=== PATIENT | male | born 1985 | race African-American/Black ===

== ENCOUNTER 2016-11-10 01:21 | Inpatient (IN) | payer SELFPAY ==
[~2016-11-10] VITALS: Ht 188 cm; Wt 111.1 kg
[2016-11-10] MEDS ORDERED: MORPHINE SULFATE 4 MG/ML CPJ (NOT FOR IM USE) IV STA (06:26)
[2016-11-10] MEDS ORDERED: ONDANSETRON HCL 4MG/2ML VIAL IV STA (06:26)
[2016-11-10] MEDS ORDERED: SODIUM CHLORIDE 0.9% 1,000 ML IV ONE ×2 (06:26→08:15)
[2016-11-10 06:49] LABS: CLARITY URINE CLEAR (CLEAR); COLOR URINE DARK YELLOW (YELLOW); GLUCOSE URINE NEGATIVE (NEGATIVE); KETONES URINE TRACE (NEGATIVE); LEUKOCYTE ESTERASE URINE NEGATIVE (NEGATIVE); NITRITE URINE NEGATIVE (NEGATIVE); OCCULT BLOOD URINE NEGATIVE (NEGATIVE); PROTEIN URINE 1+ (NEGATIVE); SPECIFIC GRAVITY URINE 1.033 (1.005-1.030)
[2016-11-10 07:10] LABS: CARBON DIOXIDE 23 mEq/L (21-32); CHLORIDE 101 mEq/L (98-107); ETHANOL BLOOD < 10 mg/dL
[2016-11-10 07:18] LABS: HEMATOCRIT. 48.4 % (42.0-52.0); HEMOGLOBIN. 16.6 g/dL (14.0-18.0); MEAN CORPUSCULAR HEMOGLOBIN 30.1 pg (28.0-32.0); MEAN CORPUSCULAR VOLUME 87.8 fL (80.0-94.0); MEAN PLATELET VOLUME 8.1 fl (7.4-10.4); PLATELET 288 x1000/uL (130-400); RED BLOOD CELL COUNT 5.52 mill/uL (4.7-6.1); RED CELL DISTRIBUTION WIDTH 13.6 % (11.6-14.6)
[2016-11-10 07:29] LABS: *AMPHETAMINES SCREEN URINE PRESUMTIVE POSITIVE (NEGATIVE); *BARBITURATES SCREEN URINE NEGATIVE (NEGATIVE); *BENZODIAZEPINES SCREEN URINE NEGATIVE (NEGATIVE); *COCAINE SCREEN URINE NEGATIVE (NEGATIVE); CANNABINOID URINE SCREEN PRESUMTIVE POSITIVE (NEGATIVE); METHADONE URINE SCREEN NEGATIVE (NEGATIVE); OPIATES URINE SCREEN NEGATIVE (NEGATIVE); PHENCYCLIDINE URINE SCREEN NEGATIVE (NEGATIVE)
[2016-11-10 08:06] LABS: PLATELET ESTIMATE NORMAL
[2016-11-10] MEDS ORDERED: MORPHINE SULFATE 4 MG/ML CPJ (NOT FOR IM USE) IV ONE (09:00)
[2016-11-10] MEDS ORDERED: ONDANSETRON HCL 4MG/2ML VIAL IV ONE (09:00)
[2016-11-10] MEDS ORDERED: IOHEXOL-300 100 ML BOTTLE ONE (12:35)
[2016-11-10] MEDS ORDERED: SODIUM CHLORIDE 0.9% 10ML VIAL ONE (12:35)
[2016-11-10] MEDS ORDERED: GUAIFENESIN 200MG/10ML SUGAR FREE UDC PO PRN (13:00)
[2016-11-10] MEDS ORDERED: DIPHENHYDRAMINE 50MG/ML VIAL IV PRN (13:00)
[2016-11-10] MEDS ORDERED: NITROGLYCERIN 0.4MG TABLET SL SL PRN (13:00)
[2016-11-10] MEDS ORDERED: TRAMADOL 50MG TABLET PO PRN (13:00)
[2016-11-10] MEDS ORDERED: ACETAMINOPHEN 325MG TABLET PO PRN (13:00)
[2016-11-10] MEDS ORDERED: LORAZEPAM 2MG/ML CPJ IV PRN (13:00)
[2016-11-10] MEDS ORDERED: IPRATROPIUM/ALBUTEROL 0.5-3(2.5)MG/3ML NEB INH PRN (13:00)
[2016-11-10] MEDS ORDERED: DOCUSATE SODIUM 100MG CAPSULE PO PRN (13:00)
[2016-11-10] MEDS ORDERED: NA PHOS,M-B/NA PHOS,DI-BA ENEMA 118ML PR PRN (13:00)
[2016-11-10] MEDS ORDERED: MAGNESIUM/ALUMINUM HYDROXIDE/SIMETHICONE 30ML UDC PO PRN (13:00)
[2016-11-10] MEDS ORDERED: CLONIDINE 0.1MG TABLET PO PRN (13:00)
[2016-11-10] MEDS ORDERED: ONDANSETRON HCL 4MG/2ML VIAL IV PRN (13:00)
[2016-11-10 13:30] VITALS: BP_SYST 199; BP_SYST 204; BP_DIAS 121; BP_DIAS 129
[2016-11-10] MEDS: KETOROLAC 15MG/ML VIAL IV PRN ×2 (13:47→21:04)
[2016-11-10] MEDS: PANTOPRAZOLE SODIUM 40 MG/VIAL IV SCH (13:47)
[2016-11-10] MEDS: SODIUM CHLORIDE 0.9% 1,000 ML IV SCH ×2 (15:30→21:04)
[2016-11-10 16:00] VITALS: BP 159/104
[2016-11-10 20:00] VITALS: BP 166/113
[2016-11-10] MEDS ORDERED: ZOLPIDEM TARTRATE 5MG TABLET PO PRN (21:00)
[2016-11-10 21:04] VITALS: BP 154/104
[2016-11-11] VITALS: BP 163/90
[2016-11-11 03:05] VITALS: BP 158/94
[2016-11-11] MEDS: KETOROLAC 15MG/ML VIAL IV PRN ×2 (03:05→11:43)
[2016-11-11 04:00] VITALS: BP 150/88
[2016-11-11 05:53] LABS: BASOPHILS % 0.5 % (0.0-2.0); EOSINOPHILS % 2.4 % (0.0-5.0); HEMATOCRIT. 41.6 % (42.0-52.0); HEMOGLOBIN. 14.2 g/dL (14.0-18.0); LYMPHOCYTES % 12.9 % (20.0-50.0); MEAN CORPUSCULAR HEMOGLOBIN 30.4 pg (28.0-32.0); MEAN CORPUSCULAR VOLUME 88.8 fL (80.0-94.0); MEAN PLATELET VOLUME 8.2 fl (7.4-10.4); MONOCYTES % 7.9 % (2.0-8.0); NEUTROPHILS % 76.3 % (40.0-76.0); PLATELET 199 x1000/uL (130-400); RED BLOOD CELL COUNT 4.68 mill/uL (4.7-6.1); RED CELL DISTRIBUTION WIDTH 13.9 % (11.6-14.6)
[2016-11-11 06:32] LABS: CARBON DIOXIDE 26 mEq/L (21-32); CHLORIDE 104 mEq/L (98-107)
[2016-11-11 08:00] VITALS: BP 144/87
[2016-11-11] MEDS: PANTOPRAZOLE SODIUM 40 MG/VIAL IV SCH (08:11)
[2016-11-11] MEDS: SODIUM CHLORIDE 0.9% 1,000 ML IV SCH (08:12)
[2016-11-11 12:00] VITALS: BP 139/82
[2016-11-11 13:37] VITALS: BP 139/82
[2016-11-12] MEDS ORDERED: FAMOTIDINE 20MG/2ML VIAL IV SCH (09:00)
== END 2016-11-11 16:20 | disposition home or self-care (01) | DRG 282 ==
LOC: ER 01:22 → 6EST 11:31 → ENRESERV 11:38
PROVIDERS: ADMIT Internal Medicine; ATTEND Internal Medicine
DX: K85.90 Acute pancreatitis without necrosis or infection, unspecified (principal); E87.1 Hypo-osmolality and hyponatremia; F15.10 Other stimulant abuse, uncomplicated; F10.10 Alcohol abuse, uncomplicated
CPT/HCPCS: 36415; 74177; 80053; 80305; 81001; 81025; 83690; 85025; 96361; 96374; 96375; 96376; 99285; A4216; C9113; G0482; J1885; J2270; J2405; J7030; Q9967

== ENCOUNTER 2017-05-13 11:18 | Inpatient (IN) | payer SELFPAY ==
[~2017-05-13] VITALS: Ht 188 cm; Wt 108.9 kg
[2017-05-13] MEDS ORDERED: SODIUM CHLORIDE 0.9% 1,000 ML IV ONE ×2 (12:44→14:24)
[2017-05-13] MEDS ORDERED: KETOROLAC 30MG/ML VIAL IV STA (12:44)
[2017-05-13] MEDS ORDERED: ONDANSETRON HCL 4MG/2ML VIAL IV STA ×2 (12:44→14:24)
[2017-05-13 13:11] LABS: BASOPHILS % 0.4 % (0.0-2.0); EOSINOPHILS % 0.7 % (0.0-5.0); HEMATOCRIT. 49.2 % (42.0-52.0); HEMOGLOBIN. 16.2 g/dL (14.0-18.0); LYMPHOCYTES % 9.9 % (20.0-50.0); MEAN CORPUSCULAR HEMOGLOBIN 30.2 pg (28.0-32.0); MEAN CORPUSCULAR VOLUME 92.1 fL (80.0-94.0); MEAN PLATELET VOLUME 7.7 fl (7.4-10.4); MONOCYTES % 11.3 % (2.0-8.0); NEUTROPHILS % 77.7 % (40.0-76.0); PLATELET 258 x1000/uL (130-400); RED BLOOD CELL COUNT 5.35 mill/uL (4.7-6.1)
[2017-05-13 13:17] LABS: CHLORIDE 98 mEq/L (98-107)
[2017-05-13 13:22] LABS: INR 1.1
[2017-05-13 13:26] LABS: CARBON DIOXIDE 30 mEq/L (21-32); ETHANOL BLOOD < 10 mg/dL
[2017-05-13] MEDS ORDERED: MORPHINE SULFATE 4 MG/ML CPJ (NOT FOR IM USE) IV STA (14:24)
[2017-05-13] MEDS ORDERED: GUAIFENESIN 200MG/10ML SUGAR FREE UDC PO PRN (16:30)
[2017-05-13] MEDS ORDERED: LORAZEPAM 2MG/ML CPJ IV PRN (16:30)
[2017-05-13] MEDS ORDERED: DOCUSATE SODIUM 100MG CAPSULE PO PRN (16:30)
[2017-05-13] MEDS ORDERED: ACETAMINOPHEN 325MG TABLET PO PRN (16:30)
[2017-05-13] MEDS ORDERED: MAGNESIUM/ALUMINUM HYDROXIDE/SIMETHICONE 30ML UDC PO PRN (16:30)
[2017-05-13] MEDS ORDERED: NA PHOS,M-B/NA PHOS,DI-BA ENEMA 118ML PR PRN (16:30)
[2017-05-13] MEDS ORDERED: ONDANSETRON HCL 4MG/2ML VIAL IV PRN (16:30)
[2017-05-13] MEDS ORDERED: IPRATROPIUM/ALBUTEROL 0.5-3(2.5)MG/3ML NEB INH PRN (16:30)
[2017-05-13] MEDS ORDERED: DIPHENHYDRAMINE 50MG/ML VIAL IV PRN (16:30)
[2017-05-13 17:13] LABS: CHLORIDE 100 mEq/L (98-107)
[2017-05-13] MEDS ORDERED: LORAZEPAM 0.5MG TABLET PO PRN (17:15)
[2017-05-13 17:19] LABS: CARBON DIOXIDE 30 mEq/L (21-32)
[2017-05-13 20:00] VITALS: BP 171/104
[2017-05-13] MEDS: SODIUM CHLORIDE 0.45% 1,000 ML IV SCH (20:54)
[2017-05-13] MEDS ORDERED: LEVOFLOXACIN 500MG PREMIX 100 ML IV SCH (21:00)
[2017-05-13] MEDS: CLONIDINE 0.1MG TABLET PO PRN (21:34)
[2017-05-13] MEDS: MORPHINE SULFATE 2 MG/ML CPJ (NOT FOR IM USE) IV PRN (21:35)
[2017-05-13] MEDS: METRONIDAZOLE 500 MG PREMIX 100 ML IV SCH (22:27)
[2017-05-14] VITALS: BP 161/98
[2017-05-14] MEDS: CLONIDINE 0.1MG TABLET PO PRN ×2 (05:17→18:10)
[2017-05-14] MEDS: MORPHINE SULFATE 2 MG/ML CPJ (NOT FOR IM USE) IV PRN ×4 (05:18→19:00)
[2017-05-14] MEDS: METRONIDAZOLE 500 MG PREMIX 100 ML IV SCH ×3 (06:05→21:44)
[2017-05-14 07:02] LABS: BASOPHILS % 0.3 % (0.0-2.0); EOSINOPHILS % 2.5 % (0.0-5.0); HEMATOCRIT. 44.6 % (42.0-52.0); HEMOGLOBIN. 15.3 g/dL (14.0-18.0); LYMPHOCYTES % 9.9 % (20.0-50.0); MEAN CORPUSCULAR HEMOGLOBIN 31.7 pg (28.0-32.0); MEAN CORPUSCULAR VOLUME 92.3 fL (80.0-94.0); MEAN PLATELET VOLUME 8.3 fl (7.4-10.4); MONOCYTES % 9.2 % (2.0-8.0); NEUTROPHILS % 78.1 % (40.0-76.0); PLATELET 205 x1000/uL (130-400); RED BLOOD CELL COUNT 4.83 mill/uL (4.7-6.1); RED CELL DISTRIBUTION WIDTH 13.9 % (11.6-14.6)
[2017-05-14 08:00] VITALS: BP 142/100
[2017-05-14 08:01] LABS: CARBON DIOXIDE 28 mEq/L (21-32); CHLORIDE 99 mEq/L (98-107); HDL CHOLESTEROL 50 mg/dL (40-59); LDL CHOLESTEROL 70 mg/dL (5-100)
[2017-05-14] MEDS: SODIUM CHLORIDE 0.45% 1,000 ML IV SCH ×2 (09:19→21:43)
[2017-05-14 12:00] VITALS: BP 148/102
[2017-05-14 12:20] LABS: CLARITY URINE CLEAR (CLEAR); COLOR URINE YELLOW (YELLOW); GLUCOSE URINE TRACE (NEGATIVE); KETONES URINE NEGATIVE (NEGATIVE); LEUKOCYTE ESTERASE URINE TRACE (NEGATIVE); NITRITE URINE NEGATIVE (NEGATIVE); OCCULT BLOOD URINE TRACE (NEGATIVE); PROTEIN URINE 1+ (NEGATIVE); SPECIFIC GRAVITY URINE 1.015 (1.005-1.030); UROBILINOGEN URINE 0.2 E.U./dL (0.2-1.0)
[2017-05-14 16:00] VITALS: BP 148/102
[2017-05-14 20:00] VITALS: BP 149/82
[2017-05-14] MEDS: HYDROCODONE/ACETAMINOPHEN 10/325MG TABLET PO PRN (20:33)
[2017-05-14] MEDS ORDERED: LEVOFLOXACIN 500MG PREMIX 100 ML IV SCH (21:00)
[2017-05-15 00:05] VITALS: BP 138/91
[2017-05-15] MEDS: MORPHINE SULFATE 2 MG/ML CPJ (NOT FOR IM USE) IV PRN (00:35)
[2017-05-15] MEDS: CLONIDINE 0.1MG TABLET PO PRN (01:04)
[2017-05-15 04:50] VITALS: BP 132/91
[2017-05-15] MEDS: HYDROCODONE/ACETAMINOPHEN 10/325MG TABLET PO PRN (05:06)
[2017-05-15] MEDS: METRONIDAZOLE 500 MG PREMIX 100 ML IV SCH (06:01)
[2017-05-15 08:00] VITALS: BP 149/94
[2017-05-15 11:07] VITALS: BP 149/94
== END 2017-05-15 12:20 | disposition home or self-care (01) | DRG 282 ==
LOC: ER 12:05 → 6EST 14:34 → ENRESERV 15:48 → CANBEDREQ 16:09 → 6EST 17:53
PROVIDERS: ADMIT Internal Medicine; ATTEND Internal Medicine
DX: K85.90 Acute pancreatitis without necrosis or infection, unspecified (principal); E86.0 Dehydration
CPT/HCPCS: 36415; 74176; 80048; 80053; 80061; 81001; 83690; 85025; 85610; 96361; 96374; 96375; 96376; 99285; G0482; J1885; J1956; J2270; J2405; J3490; J7030

== ENCOUNTER 2017-06-15 03:03 | Emergency (ER) | payer SELFPAY ==
[~2017-06-15] VITALS: Ht 188 cm; Wt 113.0 kg
[2017-06-15 03:14] VITALS: BP 182/149
== END 2017-06-15 07:36 | disposition left against medical advice (07) ==
LOC: ER 03:03
DX: R10.9 Unspecified abdominal pain (principal); E86.0 Dehydration; Z53.21 Procedure and treatment not carried out due to patient leaving prior to being seen by health care provider

== ENCOUNTER 2017-10-03 14:54 | Inpatient (IN) | payer SELFPAY ==
[~2017-10-03] VITALS: Ht 185.4 cm; Wt 96.6 kg
[2017-10-03] MEDS ORDERED: SODIUM CHLORIDE 0.9% 1,000 ML IV ONE (16:19)
[2017-10-03] MEDS ORDERED: ONDANSETRON HCL 4MG/2ML VIAL IV STA (16:19)
[2017-10-03 16:42] LABS: BASOPHILS % 0.6 % (0.0-2.0); EOSINOPHILS % 1.4 % (0.0-5.0); HEMATOCRIT. 47.5 % (42.0-52.0); HEMOGLOBIN. 16.9 g/dL (14.0-18.0); LYMPHOCYTES % 18.2 % (20.0-50.0); MEAN CORPUSCULAR HEMOGLOBIN 32.7 pg (28.0-32.0); MEAN CORPUSCULAR VOLUME 91.6 fL (80.0-94.0); MONOCYTES % 6.6 % (2.0-8.0); NEUTROPHILS % 73.2 % (40.0-76.0); PLATELET 321 x1000/uL (130-400); RED BLOOD CELL COUNT 5.18 mill/uL (4.7-6.1); RED CELL DISTRIBUTION WIDTH 13.4 % (11.6-14.6)
[2017-10-03 16:45] LABS: CHLORIDE 102 mEq/L (98-107)
[2017-10-03 16:48] LABS: PROTHROMBIN TIME 10.5 sec (9.4-11.6)
[2017-10-03] MEDS ORDERED: MORPHINE SULFATE 4 MG/ML CPJ (NOT FOR IM USE) IV ONE ×2 (17:15→20:15)
[2017-10-03 18:54] LABS: CLARITY URINE CLEAR (CLEAR); COLOR URINE YELLOW (YELLOW); KETONES URINE 1+ (NEGATIVE); LEUKOCYTE ESTERASE URINE NEGATIVE (NEGATIVE); NITRITE URINE NEGATIVE (NEGATIVE); OCCULT BLOOD URINE NEGATIVE (NEGATIVE); PH URINE 5.5 (4.5-8.0); PROTEIN URINE TRACE (NEGATIVE); SPECIFIC GRAVITY URINE 1.022 (1.005-1.030)
[2017-10-03 20:00] VITALS: BP 168/103
[2017-10-03] MEDS ORDERED: HYDROMORPHONE HCL/PF 2MG/ML CPJ IV ONE (20:00)
[2017-10-03 21:28] VITALS: BP 168/103
[2017-10-03] MEDS ORDERED: DOCUSATE SODIUM 100MG CAPSULE PO PRN (22:45)
[2017-10-03] MEDS ORDERED: ACETAMINOPHEN 325MG TABLET PO PRN (22:45)
[2017-10-03] MEDS ORDERED: NA PHOS,M-B/NA PHOS,DI-BA ENEMA 118ML PR PRN (22:45)
[2017-10-03] MEDS ORDERED: MAGNESIUM/ALUMINUM HYDROXIDE/SIMETHICONE 30ML UDC PO PRN (22:45)
[2017-10-03] MEDS ORDERED: ONDANSETRON HCL 4MG/2ML VIAL IV PRN (22:45)
[2017-10-03] MEDS ORDERED: LORAZEPAM 2MG/ML CPJ IV PRN (22:45)
[2017-10-03] MEDS ORDERED: IPRATROPIUM/ALBUTEROL 0.5-3(2.5)MG/3ML NEB INH PRN (22:45)
[2017-10-03] MEDS ORDERED: GUAIFENESIN 200MG/10ML SUGAR FREE UDC PO PRN (22:45)
[2017-10-03] MEDS ORDERED: HYDROCODONE/ACETAMINOPHEN 10/325MG TABLET PO PRN (22:45)
[2017-10-03] MEDS ORDERED: ENOXAPARIN 40MG/0.4ML SYR SUBCUT SCH (23:00)
[2017-10-03] MEDS: DIPHENHYDRAMINE 50MG/ML VIAL IV PRN (23:12)
[2017-10-03] MEDS: CLONIDINE 0.1MG TABLET PO PRN (23:13)
[2017-10-03] MEDS: MORPHINE SULFATE 4 MG/ML CPJ (NOT FOR IM USE) IV PRN (23:14)
[2017-10-04] VITALS: BP 152/104
[2017-10-04] MEDS ORDERED: LEVOFLOXACIN 500MG PREMIX 100 ML IV SCH (01:00)
[2017-10-04] MEDS: METRONIDAZOLE 500 MG PREMIX 100 ML IV SCH ×3 (01:16→16:00)
[2017-10-04] MEDS: SODIUM CHLORIDE 0.45% 1,000 ML IV SCH ×2 (01:16→08:40)
[2017-10-04 04:00] VITALS: BP 127/84
[2017-10-04] MEDS: DIPHENHYDRAMINE 50MG/ML VIAL IV PRN (05:41)
[2017-10-04] MEDS: MORPHINE SULFATE 4 MG/ML CPJ (NOT FOR IM USE) IV PRN ×2 (05:41→12:59)
[2017-10-04 06:42] LABS: BASOPHILS % 0.8 % (0.0-2.0); EOSINOPHILS % 3.3 % (0.0-5.0); HEMATOCRIT. 41.6 % (42.0-52.0); HEMOGLOBIN. 14.3 g/dL (14.0-18.0); LYMPHOCYTES % 25.1 % (20.0-50.0); MEAN PLATELET VOLUME 7.8 fl (7.4-10.4); NEUTROPHILS % 60.8 % (40.0-76.0); PLATELET 260 x1000/uL (130-400); RED BLOOD CELL COUNT 4.48 mill/uL (4.7-6.1); RED CELL DISTRIBUTION WIDTH 13.6 % (11.6-14.6)
[2017-10-04 07:28] LABS: CHLORIDE 104 mEq/L (98-107)
[2017-10-04 07:46] LABS: HDL CHOLESTEROL 55 mg/dL (40-59); LDL CHOLESTEROL 71 mg/dL (5-100)
[2017-10-04 08:00] VITALS: BP 147/94
[2017-10-04 12:00] VITALS: BP 138/100
[2017-10-04 13:42] VITALS: BP_SYST 138; BP_SYST 141; BP_DIAS 87
[2017-10-04] MEDS: CLONIDINE 0.1MG TABLET PO PRN (13:56)
[2017-10-04 16:00] VITALS: BP 143/94
== END 2017-10-04 16:09 | disposition home or self-care (01) | DRG 282 ==
LOC: ER 15:44 → 6EST 18:54 → EDBEDREQ 18:57 → ENRESERV 19:55
PROVIDERS: ADMIT Internal Medicine; ATTEND Internal Medicine
DX: K85.90 Acute pancreatitis without necrosis or infection, unspecified (principal); R65.10 Systemic inflammatory response syndrome (SIRS) of non-infectious origin without acute organ dysfunction; E86.0 Dehydration
CPT/HCPCS: 36415; 71045; 74176; 80053; 80061; 81003; 83690; 85025; 85610; 93005; 96361; 96374; 96375; 99285; G0482; J1170; J1200; J1650; J1956; J2060; J2270; J2405; J3490; J7030

== ENCOUNTER 2022-02-14 09:17 | Emergency (ER) | payer OTHER ==
[~2022-02-14] VITALS: Ht 180.3 cm; Wt 90.0 kg
[2022-02-14 09:32] VITALS: BP 132/80
[2022-02-14 10:25] LABS: BASOPHILS % 1.2 % (0.0-2.0); EOSINOPHILS % 0.7 % (0.0-5.0); HEMATOCRIT. 55.4 % (42.0-52.0); HEMOGLOBIN. 18.3 g/dL (14.0-18.0); LYMPHOCYTES % 36.1 % (20.0-50.0); MEAN CORPUSCULAR HEMOGLOBIN 30.8 pg (28.0-32.0); MEAN CORPUSCULAR VOLUME 93.5 fL (80.0-94.0); MEAN PLATELET VOLUME 8.3 fl (7.4-10.4); MONOCYTES % 5.1 % (2.0-8.0); NEUTROPHILS % 56.9 % (40.0-76.0); PLATELET 273 x1000/uL (130-400); RED BLOOD CELL COUNT 5.93 mill/uL (4.7-6.1); RED CELL DISTRIBUTION WIDTH 15.9 % (11.6-14.6)
[2022-02-14 10:41] LABS: CHLORIDE 96 mEq/L (98-107)
[2022-02-14 11:06] LABS: ETHANOL BLOOD 314 mg/dL
== END 2022-02-14 11:37 | disposition left against medical advice (07) ==
LOC: ER 09:17
DX: R10.9 Unspecified abdominal pain (principal); F10.10 Alcohol abuse, uncomplicated; F15.90 Other stimulant use, unspecified, uncomplicated; Y90.8 Blood alcohol level of 240 mg/100 ml or more; F14.90 Cocaine use, unspecified, uncomplicated; D72.819 Decreased white blood cell count, unspecified; V48.5XXA Car driver injured in noncollision transport accident in traffic accident, initial encounter; Y93.89 Activity, other specified; Y92.85 Railroad track as the place of occurrence of the external cause
CPT/HCPCS: 36415; 80053; 80320; 85025; 99283; G0480

== ENCOUNTER 2022-02-17 16:44 | Emergency (ER) | payer OTHER ==
[~2022-02-17] VITALS: Ht 190.5 cm; Wt 96.0 kg
[2022-02-17 16:47] VITALS: BP 152/105
== END 2022-02-17 22:46 | disposition left against medical advice (07) ==
LOC: ER 16:44
DX: Z53.21 Procedure and treatment not carried out due to patient leaving prior to being seen by health care provider (principal)
CPT/HCPCS: 82962

== ENCOUNTER 2022-02-18 02:38 | Emergency (ER) | payer OTHER ==
[~2022-02-18] VITALS: Ht 190.5 cm; Wt 100.0 kg
[2022-02-18 03:16] VITALS: BP 149/100
== END 2022-02-18 10:53 | disposition left against medical advice (07) ==
LOC: ER 02:38
DX: Z53.21 Procedure and treatment not carried out due to patient leaving prior to being seen by health care provider (principal)